=== PATIENT | female | born 1990 | race Caucasian/White ===

== ENCOUNTER 2019-09-26 15:58 | Inpatient (IN) | payer BC ==
[~2019-09-26] VITALS: Ht 170.2 cm; Wt 146.1 kg
[2019-09-26 16:15] VITALS: BP_SYST 175
--- NOTE | 2019-09-26 16:15 | NUR ---
ADMISSION NOTE Received patient DIRECT ADMIT FROM DR. FORMAN. Patient admitted with diagnosis of RECTAL BLEEDING. Patient oriented to hospital routine, call light, toileting and safety-patient verbalized understanding.
[2019-09-26] MEDS ORDERED: METO25TA3 PO (16:23)
[2019-09-26] MEDS ORDERED: GLUXR500 PO (16:23)
[2019-09-26] MEDS ORDERED: LISD60TA PO (16:23)
[2019-09-26] MEDS ORDERED: OLAN10TA3 PO (16:23)
[2019-09-26] MEDS ORDERED: BUPR300T55 PO (16:23)
--- NOTE | 2019-09-26 17:38 | NUR ---
CONSULT PAGED DR. GALINDO CONSULT SPECIALITY: GI DIALED: [phone] SPOKE TO: RADHA ORDERED BY: DR. FORMAN
--- NOTE | 2019-09-26 18:00 | NUR ---
Dr. Mcdonald called with order Received a call from Dr. Mcdonald with new order for colonoscopy in am at 7:15, household appliance assembler notified, golytely 4 L and may add more 2 L if not yet cleared, 15 mg dulcolax and NPo post midnight, telephone order read back, verified, noted and carried out.
--- NOTE | 2019-09-26 18:10 | NUR ---
Dr. Wilkerson rounds Seen and examined by , will follow-up for any new orders.
[2019-09-26] MEDS ORDERED: BISACODYL 5 MG TABLET.DR (DULCOLAX) PO ONE (18:15)
[2019-09-26 18:16] LABS: BASOPHILS # (AUTO) 0.1 K/uL (0.0-0.2); BASOPHILS % (AUTO) 0.8 % (0.0-2.0); EOSINOPHILS # (AUTO) 0.3 K/uL (0.0-0.4); EOSINOPHILS % (AUTO) 3.4 % (0.0-4.0); HEMATOCRIT 40.6 % (36-48); HEMOGLOBIN 14.4 g/dL (12.0-16.0); LYMPHOCYTES # (AUTO) 3.1 K/uL (1.0-5.5); LYMPHOCYTES % (AUTO) 37.4 % (20.5-51.5); MEAN CORPUSCULAR HEMOGLOBIN 31 pg (27-31); MEAN CORPUSCULAR HGB CONC 36 % (32-36); MEAN CORPUSCULAR VOLUME 87 fL (79.0-98.0); MONOCYTES # (AUTO) 0.5 K/uL (0.0-1.0); MONOCYTES % (AUTO) 6.2 % (1.7-9.3); NEUTROPHILS # (AUTO) 4.3 K/uL (1.8-7.7); NEUTROPHILS % (AUTO) 52.2 % (40.0-70.0); PLATELET COUNT (AUTO) 297 K/uL (130-430); RED BLOOD CELL COUNT(AUTO) 4.69 MIL/uL (4.2-6.2); RED CELL DISTRIBUTION WIDTH 13.2 % (9.0-15.0); WHITE BLOOD COUNT (AUTO) 8.3 K/uL (4.8-10.8)
[2019-09-26 18:16] LABS: BILIRUBIN,URINE NEGATIVE (NEGATIVE); BLOOD, URINE NEGATIVE (NEGATIVE); COLOR,URINE YELLOW (YELLOW); GLUCOSE,URINE NEGATIVE (NEGATIVE); KETONES,URINE TRACE (NEGATIVE); LEUKOCYTE ESTERASE ,URINE NEGATIVE (NEGATIVE); NITRITE, URINE NEGATIVE (NEGATIVE); PH,URINE 6.5 (5.0-8.0); PROTEIN URINE NEGATIVE (NEGATIVE); UROBILINOGEN,URINE 0.2 (0.2-1.0)
[2019-09-26 18:21] LABS: CALCIUM 9.1 mg/dL (8.4-11.0); CREATININE 1.03 mg/dL (0.55-1.30); POTASSIUM 3.7 mmol/L (3.5-5.1)
[2019-09-26 18:22] LABS: CLARITY/URINE HAZY (CLEAR)
[2019-09-26] MEDS: NACL 0.9% 1,000 ML IV SCH (18:23)
[2019-09-26] MEDS: buPROPion HCL 150 MG XL TAB PO ONE ×2 (18:23→18:29)
[2019-09-26] MEDS: OLANZapine 10 MG TABLET PO ONE ×2 (18:24→18:29)
[2019-09-26 18:25] LABS: PROTHROMBIN TIME 10.3 SECS (9.5-12.5)
[2019-09-26] MEDS: METOPROLOL SUCCINATE 25 MG TAB.SR.24H (TOPROL XL) PO ONE ×2 (18:25→18:29)
[2019-09-26 18:26] LABS: TOTAL BILIRUBIN 0.6 mg/dL (0.0-1.0)
--- NOTE | 2019-09-26 19:14 | NUR ---
Closing Notes Patient remain to be alert, awake and verbally responsive, respiration even and unlabored. Denies any pain or discomfort. IVF infusing well. Patient refused all PO meds due except Dulcolax, explained risks and benefits. Pre colonoscopy instructions given, patient verbalized understanding. Call light within the reach. Will endorse to the next shift.
[2019-09-26 20:00] VITALS: BP_SYST 136
[2019-09-26] MEDS ORDERED: GOLYTELY / COLYTE SOLUTION 4 LITERS PO ONE (20:00)
--- NOTE | 2019-09-26 20:00 | NUR ---
Pt is resting quietly in bed. No acute distress noted and no c/o pain or discomfort. IVF of NS is infusing well in LAC at 100ml/hr without any signs of infiltration. Pt was instructed on nothing by mouth after midnight for colonoscopy in AM and pt verbalized understanding. Fall and safety precautions are in place.
[2019-09-26] MEDS: FAMOTIDINE 20 MG TABLET PO SCH (20:21)
--- NOTE | 2019-09-26 22:00 | NUR ---
Pt is tolerating Golytely well when she drinks water and apple juice in between drinking Golytely. IVF is infusing well in LAC. Pt's mother is in a recliner at the bedside.
[2019-09-27] VITALS: BP_SYST 128
--- NOTE | 2019-09-27 | NUR ---
Pt is now nothing by mouth for colonoscopy. Pt had multiple bowel movements and bowel output is clear at this time. IVF is infusing well in LAC. Pt's mother is at the bedside in a recliner.
--- NOTE | 2019-09-27 02:00 | NUR ---
Pt is sleeping without any distress noted. Fall and safety precautions are in place. IVF is infusing well in [facility]. Pt's mother is also asleep in a recliner at the bedside.
[2019-09-27] MEDS ORDERED: MORPHINE 4 MG/ML INJ. SYRINGE IVP PRN (04:00)
[2019-09-27] MEDS: NACL 0.9% 1,000 ML IV SCH ×2 (04:10→13:45)
[2019-09-27] MEDS: ONDANSETRON HCL 4 MG/2 ML VIAL IVP PRN ×2 (04:19→12:54)
--- NOTE | 2019-09-27 04:20 | NUR ---
Pt c/o 8/10 rectal pain and nausea. No emesis noted. Pt requested medications for both. Morphine 4mg and Zofran 4mg were given IV as ordered by Dr. Wilkerson. IV site is without any signs of infiltration. Bed alarm was armed per pt's request to prevent fall and injury. Pt's mother is at the bedside in a recliner.
--- NOTE | 2019-09-27 06:30 | NUR ---
PT IS AWAKE AND RESTING COMFORTABLY IN BED. ALL PT'S NEEDS WERE ATTENDED TO. FALL AND SAFETY PRECAUTIONS ARE IN PLACE.
[2019-09-27] MEDS ORDERED: fentaNYL CITRATE/PF 100 MCG/2 ML AMP ONE (06:40)
[2019-09-27] MEDS ORDERED: MIDAZOLAM HCL 5 MG/5 ML VIAL ONE (06:44)
[2019-09-27] MEDS: MIDAZOLAM HCL 5 MG/5 ML VIAL ONE ×3 (07:02→07:14)
[2019-09-27] MEDS ORDERED: MEPERIDINE HCL/PF 100 MG/ML AMP ONE (07:10)
[2019-09-27 07:27] LABS: BASOPHILS # (AUTO) 0.1 K/uL (0.0-0.2); BASOPHILS % (AUTO) 0.8 % (0.0-2.0); EOSINOPHILS # (AUTO) 0.2 K/uL (0.0-0.4); EOSINOPHILS % (AUTO) 3.3 % (0.0-4.0); HEMATOCRIT 35.8 % (36-48); HEMOGLOBIN 12.5 g/dL (12.0-16.0); LYMPHOCYTES # (AUTO) 2.8 K/uL (1.0-5.5); MEAN CORPUSCULAR HEMOGLOBIN 31 pg (27-31); MEAN CORPUSCULAR HGB CONC 35 % (32-36); MEAN CORPUSCULAR VOLUME 87 fL (79.0-98.0); MONOCYTES # (AUTO) 0.6 K/uL (0.0-1.0); MONOCYTES % (AUTO) 8.4 % (1.7-9.3); NEUTROPHILS % (AUTO) 45.5 % (40.0-70.0); PLATELET COUNT (AUTO) 234 K/uL (130-430); RED BLOOD CELL COUNT(AUTO) 4.09 MIL/uL (4.2-6.2); RED CELL DISTRIBUTION WIDTH 13.2 % (9.0-15.0); WHITE BLOOD COUNT (AUTO) 6.6 K/uL (4.8-10.8)
[2019-09-27] MEDS ORDERED: HYDROCORTISONE 1%, 28.35 GM TOPICAL CREAM TP PRN (07:30)
[2019-09-27 07:42] LABS: CALCIUM 7.9 mg/dL (8.4-11.0); CREATININE 0.95 mg/dL (0.55-1.30); POTASSIUM 3.5 mmol/L (3.5-5.1)
--- NOTE | 2019-09-27 08:00 | NUR ---
Back from GI Lab Patient arrived from GI lab via wheelchair, accompanied by RN, alert, awake and verbally responsive. Denies any pain or discomfort. Respiration even and unlabored. Ambulated to the restroom, steady. No active bleeding. Discussed plan of care today and usage of call light, patient verbalized understanding, patient verbalized understanding. Call light within the reach. Will continue to monitor.
[2019-09-27 08:08] LABS: FREE T4 (FREE THYROXINE) 1.1 ng/dl (0.8-1.5); THYROID STIMULATING HORMONE 3.59 uIu/mL (0.36-3.74)
[2019-09-27 08:25] VITALS: BP_SYST 136
[2019-09-27] MEDS ORDERED: LISDEXAMFETAMINE DIMESYLATE 70 MG PO SCH (09:00)
[2019-09-27] MEDS ORDERED: METOPROLOL SUCCINATE 25 MG TAB.SR.24H (TOPROL XL) PO SCH (09:00)
[2019-09-27] MEDS ORDERED: buPROPion HCL 150 MG XL TAB PO SCH (09:00)
[2019-09-27] MEDS ORDERED: OLANZapine 10 MG TABLET PO SCH (09:00)
[2019-09-27] MEDS: FAMOTIDINE 20 MG TABLET PO SCH (09:25)
--- NOTE | 2019-09-27 10:30 | NUR ---
RN ROUNDS Patient resting well, respiration even and unlabored. Denies any pain or discomfort at this time. No active bleeding noted. Call light within the reach.
[2019-09-27 12:00] VITALS: BP_SYST 107
--- NOTE | 2019-09-27 12:30 | NUR ---
Headache and nausea Complained of headache /10 and nausea, refused morphine, paged Dr. Wilkerson, awaiting for call back. Zofran given as ordered for nausea. Will follow-up for effectiveness.
--- NOTE | 2019-09-27 13:00 | NUR ---
Sleeping Patient asleep, no complain of headache at this time, no moaning or grimacing noted. Call light within the reach.
--- NOTE | 2019-09-27 14:00 | NUR ---
Dr. Wilkerson Rounds Seen and examined by MD, notified regarding with episode of headache and nausea, per MD okay to give Tylenol and keep full liquid diet till dinner and okay to discharge after.
[2019-09-27] MEDS ORDERED: ACETAMINOPHEN 500 MG TABLET PO PRN (15:15)
[2019-09-27 16:00] VITALS: BP_SYST 116
--- NOTE | 2019-09-27 16:30 | NUR ---
RN ROUNDS Patient currently lying comfortably in her bed with respiration even and unlabored. Call light within the reach.
[2019-09-27] MEDS ORDERED: ONDA4TAB5 PO (18:01)
[2019-09-27 18:10] VITALS: BP_SYST 124
--- NOTE | 2019-09-27 18:49 | NUR ---
D/C Patient TO HOME Patient given medication reconciliation form and D/C instructions. Exit Care provided. Patient verbalized understanding. MD discussed with patient the results and treatment provided. Ambulatory with steady gait for discharge to home. Patient in stable condition, ID band removed. IV catheter removed, intact and dressing applied, no active bleeding. Called and notified Dr. Wilkerson regarding calling the pharmacy for the precription for Zofran per patient's request. Patient educated on pain management. All belongings sent with patient.
== END 2019-09-27 18:49 | disposition home or self-care (01) | DRG 394 ==
LOC: SMU 15:58
PROVIDERS: ADMIT Internal Medicine; ATTEND Internal Medicine
PROC: 0DBE8ZX Excision of Large Intestine, Via Natural or Artificial Opening Endoscopic, Diagnostic (ICD-10-PCS; 2019-09-27)
PROC: 0DBM8ZZ Excision of Descending Colon, Via Natural or Artificial Opening Endoscopic (ICD-10-PCS; principal; 2019-09-27 07:00)
DX: K63.5 Polyp of colon (principal); Z68.43 Body mass index [BMI] 50.0-59.9, adult; K64.4 Residual hemorrhoidal skin tags; F31.9 Bipolar disorder, unspecified; E66.01 Morbid (severe) obesity due to excess calories; K59.00 Constipation, unspecified; K58.0 Irritable bowel syndrome with diarrhea; Z88.1 Allergy status to other antibiotic agents; Z88.2 Allergy status to sulfonamides; Z79.899 Other long term (current) drug therapy
CPT/HCPCS: 36415; 45380; 80048; 80053; 80061; 81003; 83036; 83690-TC; 83735-TC; 84439; 84443-TC; 85025; 85610-TC; 85730-TC; 86886; 86900; 86901; 88305; J2175; J2250; J2270; J2405; J3010; J7030

== ENCOUNTER 2021-06-11 17:28 | Inpatient (IN) | payer BC, MEDICAID, SELFPAY ==
[~2021-06-11] VITALS: Ht 170.2 cm; Wt 139.3 kg
[~2021-06-11 17:28] MED LIST: BUPR300T55 PO; GLUXR500 PO; LISD60TA PO; METO25TA3 PO; OLAN10TA3 PO; ONDA4TAB5 PO
[2021-06-11 17:39] VITALS: BP_SYST 141
--- NOTE | 2021-06-11 17:40 | NUR ---
Patient to ER bed TENT1 to gown for evaluation. Side rails up.
--- NOTE | 2021-06-11 17:42 | NUR ---
Pt brought by mother, A&Ox4, pt presents to ER with cough / congestion, pt afebrile, skin pink and warm, respirations even and unlabored, will cont to monitor.
--- NOTE | 2021-06-11 19:00 | NUR ---
DR. CARRILLO AT BEDSIDE FOR EVALUATION.
[2021-06-11 19:50] LABS: BASOPHILS % (AUTO) 0.4 % (0.0-2.0); HEMATOCRIT 40.2 % (36-48); HEMOGLOBIN 13.8 g/dL (12.0-16.0); LYMPHOCYTES # (AUTO) 1.3 K/uL (1.0-5.5); LYMPHOCYTES % (AUTO) 19.2 % (20.5-51.5); MEAN CORPUSCULAR HEMOGLOBIN 30 pg (27-31); MEAN CORPUSCULAR HGB CONC 34 % (32-36); MEAN CORPUSCULAR VOLUME 86 fL (79.0-98.0); MONOCYTES # (AUTO) 0.5 K/uL (0.0-1.0); MONOCYTES % (AUTO) 7.7 % (1.7-9.3); NEUTROPHILS % (AUTO) 72.7 % (40.0-70.0); PLATELET COUNT (AUTO) 191 K/uL (130-430); RED BLOOD CELL COUNT(AUTO) 4.68 MIL/uL (4.2-6.2); RED CELL DISTRIBUTION WIDTH 13.9 % (9.0-15.0); WHITE BLOOD COUNT (AUTO) 6.9 K/uL (4.8-10.8)
[2021-06-11 19:55] LABS: CALCIUM 8.2 mg/dL (8.4-11.0); CREATININE 1.3 mg/dL (0.55-1.30)
[2021-06-11 20:00] LABS: ALBUMIN 3.7 g/dL (3.4-4.8); TOTAL BILIRUBIN 0.5 mg/dL (0.0-1.0)
[2021-06-11 20:08] LABS: INR 1.1 (0.8-1.2); PROTHROMBIN TIME 11.7 SECS (9.5-12.5)
--- NOTE | 2021-06-11 20:40 | NUR ---
Patient will be admitted to care of [facility]. Admitted to TELE unit. Will go to room 134B. Belongings list completed. Complete and up to date summary report printed. SBAR report to be given at bedside with opportunity for questions.
[2021-06-11 20:44] LABS: C-REACTIVE PROTEIN QUANT 4.9 mg/dL (0-0.5)
[2021-06-11 20:53] LABS: BILIRUBIN,URINE NEGATIVE (NEGATIVE); BLOOD, URINE NEGATIVE (NEGATIVE); COLOR,URINE YELLOW (YELLOW); GLUCOSE,URINE NEGATIVE (NEGATIVE); KETONES,URINE NEGATIVE (NEGATIVE); LEUKOCYTE ESTERASE ,URINE NEGATIVE (NEGATIVE); NITRITE, URINE NEGATIVE (NEGATIVE); PROTEIN URINE 1+ (NEGATIVE); UROBILINOGEN,URINE 0.2 (0.2-1.0)
[2021-06-11] MEDS ORDERED: INSULIN REGULAR, HUMAN 100 UNITS/ML, 10 ML VIAL (humuLIN R) SUBCUT PRN (21:00)
[2021-06-11] MEDS ORDERED: ONDANSETRON 4 MG ODT TAB PO SCH (21:00)
[2021-06-11] MEDS ORDERED: DEXTROSE 50% JECT 50 ML DISP.SYRIN IVP PRN (21:00)
[2021-06-11 21:03] LABS: CLARITY/URINE SLIGHTLY HAZY (CLEAR)
[2021-06-11 21:08] LABS: BACTERIA,URINE FEW /HPF (None Seen); RBC,URINE 0-3 /HPF (0-3); WBC,URINE 0-3 /HPF (0-3)
[2021-06-11 21:09] LABS: MUCUS,URINE 1+ /LPF (None Seen)
[2021-06-11] MEDS ORDERED: LOPERAMIDE HCL 2 MG CAPSULE PO PRN (21:15)
[2021-06-11] MEDS ORDERED: ONDANSETRON HCL 4 MG/2 ML VIAL IVP PRN (21:15)
--- NOTE | 2021-06-11 21:16 | NUR ---
Patient's code status is FULL CODE paperwork completed and placed in chart.
--- NOTE | 2021-06-11 21:26 | NUR ---
BELONGINGS DONE AT BEDSIDE WITH PATIENT.
[2021-06-11] MEDS ORDERED: TOPXL100 PO (21:33)
--- NOTE | 2021-06-11 21:34 | NUR ---
Medication reconciliation completed with information provided by PATIENT. Any prior medication reconciliation on file was reviewed and corrected.
--- NOTE | 2021-06-11 21:45 | NUR ---
ADMISSION NOTE Received patient from ER via gurney. Patient admitted with diagnosis of . Patient is awake, alert, oriented X 4. Patient oriented to hospital room, call light, toileting, pain management and safety-teach back done. Patient informed that CARIE will be HER nurse and that their room number is 134B. Personal belongings checked and Belongings List documented. Call light within reach.
--- NOTE | 2021-06-11 21:50 | NUR ---
PATIENT AWAKE ALERT ORIENTED X4 BREATHING OXYGEN VIA N/C AT 2 LPM NO SIGNS OF PAIN OR DISTRESS. IV SITE PATENT AND INTACT. BED LOW AND CALL LIGHT IN REACH.
[2021-06-11 22:00] VITALS: BP_SYST 128
[2021-06-11 22:10] VITALS: BP_SYST 159
--- NOTE | 2021-06-11 22:11 | NUR ---
CONSULT REASON FOR CONSULT: COVID PERSON I SPOKE WITH: LEEANN CONSULTING PHYSICIAN: DR. PA WELDER FITTER GAS PHONE NUMBER: [phone] ORDERING PHYSICIAN: DR. FORMAN
[2021-06-11] MEDS ORDERED: cefTRIAXone 1 GM VIAL ONE (22:49)
[2021-06-11 22:52] VITALS: BP_SYST 159
[2021-06-11] MEDS: ACETAMINOPHEN 325 MG TABLET PO PRN (23:03)
[2021-06-11] MEDS: DEXAMETHASONE SOD PHOSPHATE 10 MG/ML VIAL IVP SCH (23:04)
[2021-06-11] MEDS: MAGNESIUM OXIDE 400 MG TABLET PO SCH (23:04)
[2021-06-11] MEDS: APIXABAN 2.5 MG TABLET PO SCH (23:04)
[2021-06-11] MEDS: cefTRIAXone 1 GM in D5W 50 ML IV SCH (23:05)
--- NOTE | 2021-06-12 | NUR ---
PATIENT COOPERATE RESTING IN BED. BED IN LOW POSITION AND CALL LIGHT IN REACH.
[2021-06-12 01:28] VITALS: BP_SYST 139
--- NOTE | 2021-06-12 04:00 | NUR ---
PATIENT DEVENDRA TO REST ROOM ACCIDENTLY DISLODGED IV LINE SITE CLEAN NO DRAINAGE NEW IV WILL BE READMINISTERED. BED IS LOW AND CALL LIGHT IN REACH.
--- NOTE | 2021-06-12 04:00 | NUR ---
PATIENT AWAKE ALERT ORIENTED X4 BREATHING OXYGEN VIA N/C NO SIGNS OF RESPIRATORY DISTRESS OR PAIN HAS MILD SHORTNESS OF BREATH WITH AMBULATION. IV SITE PATENT INTACT. BED IN LOW POSITION AND CALL LIGHT IN REACH.
--- NOTE | 2021-06-12 06:48 | NUR ---
PATIENT IS ASLEEP COMFORTABLE BREATHING OXYGEN 2 LPM VIA N/C NO SIGNS OF RESPIRATORY DISTRESS IN MY SHIFT HAS SHORTNESS OF BREATH OFF OF OXYGEN. IV LINE PATENT INTACT. PATIENT AMBULATES TO RESTROOM. BED LOW AND CALL LIGHT IN REACH. WILL ENDORSE TO NEXT SHIFT NURSE TO MONITOR LABS.
[2021-06-12 07:09] LABS: BASOPHILS % (AUTO) 0.3 % (0.0-2.0); HEMATOCRIT 38.9 % (36-48); HEMOGLOBIN 13.4 g/dL (12.0-16.0); LYMPHOCYTES # (AUTO) 1.4 K/uL (1.0-5.5); LYMPHOCYTES % (AUTO) 27.6 % (20.5-51.5); MEAN CORPUSCULAR HEMOGLOBIN 29 pg (27-31); MEAN CORPUSCULAR HGB CONC 35 % (32-36); MEAN CORPUSCULAR VOLUME 85 fL (79.0-98.0); MONOCYTES # (AUTO) 0.5 K/uL (0.0-1.0); NEUTROPHILS # (AUTO) 3.1 K/uL (1.8-7.7); NEUTROPHILS % (AUTO) 62.1 % (40.0-70.0); PLATELET COUNT (AUTO) 173 K/uL (130-430); RED BLOOD CELL COUNT(AUTO) 4.57 MIL/uL (4.2-6.2)
[2021-06-12 08:00] VITALS: BP_SYST 157
[2021-06-12 08:00] LABS: ALBUMIN 3.4 g/dL (3.4-4.8); CALCIUM 8.6 mg/dL (8.4-11.0); CREATININE 1.11 mg/dL (0.55-1.30); POTASSIUM 3.9 mmol/L (3.5-5.1); TOTAL BILIRUBIN 0.4 mg/dL (0.0-1.0)
--- NOTE | 2021-06-12 08:00 | NUR ---
Initial Notes Patient sitting up in bed eating breakfast. Awake and alert x 4. Oxygen is off. Patient short of breath. Placed oxygen back on at 3 liters via N/C. O2 saturation 92%. Increased to 4 liters. Low grade fever 99.1. Will continue to monitor. Bed placed in lowest position and call light in reach. Encouraged to call as needed.
[2021-06-12] MEDS: ALBUTEROL MDI INHALATION 8 GM INH INH SCH ×4 (09:00→19:56)
[2021-06-12] MEDS ORDERED: LISDEXAMFETAMINE DIMESYLATE 70 MG PO SCH (09:00)
[2021-06-12] MEDS ORDERED: ASCORBIC ACID 500 MG TABLET PO SCH (09:00)
[2021-06-12] MEDS: AZITHROMYCIN 500 MG in NS 250 ML IV SCH (09:01)
[2021-06-12] MEDS: buPROPion HCL 150 MG XL TAB PO SCH (09:02)
[2021-06-12] MEDS: CHOLECALCIFEROL (VITAMIN D3) 5,000 UNIT TABLET PO SCH (09:03)
[2021-06-12] MEDS: METOPROLOL SUCCINATE 25 MG TAB.SR.24H (TOPROL XL) PO SCH (09:03)
[2021-06-12] MEDS: OLANZapine 10 MG TABLET PO SCH (09:03)
[2021-06-12] MEDS: MAGNESIUM OXIDE 400 MG TABLET PO SCH ×2 (09:03→21:44)
[2021-06-12] MEDS: APIXABAN 2.5 MG TABLET PO SCH ×2 (09:03→21:47)
--- NOTE | 2021-06-12 10:00 | NUR ---
Patient Teaching Instructed patient on use of incentive spirometer and on prone position. Instructed to keep oxygen in place. Patient verbalized understanding.
--- NOTE | 2021-06-12 12:00 | NUR ---
Notes Patient sitting up in bed with HOB at 30 degrees, no acute distress. Dry cough noted. Instructed patient to reposition self to prone position. Patient verbalized understanding and repositioned self. Call light in reach and bed in lowest position.
[2021-06-12 12:12] VITALS: BP_SYST 148
--- NOTE | 2021-06-12 14:43 | NUR ---
Notes Patient complaining of anterior chest pain every time she coughs and now present with just breathing. Paged Dr. Wilkerson.
[2021-06-12] MEDS: BENZONATATE 100 MG CAPSULE (TESSALON) PO SCH ×2 (15:13→21:44)
[2021-06-12] MEDS: ACETAMINOPHEN 325 MG TABLET PO PRN (15:15)
--- NOTE | 2021-06-12 16:02 | NUR ---
Notes Patient resting at this time, pain is controlled. Oxygen flowing at 4 liters. Encouraged to call as needed.
[2021-06-12 17:20] VITALS: BP_SYST 138
--- NOTE | 2021-06-12 19:06 | NUR ---
Closing Notes Patient sitting up in bed eating dinner. No complaints or signs of pain or distress. Call light in reach, encouraged to call. Bed left in lowest position.
--- NOTE | 2021-06-12 19:30 | NUR ---
PATIENT AWAKE ALERT ORIENTED X4 BREATHING OXYGEN VIA N/C AT 4 LPM NO SIGNS OF RESPIRATORY DISTRESS OR PAIN. IV SITE PATENT AND INTACT. BED IS LOW AND CALL LIGHT IS IN REACH.
[2021-06-12] MEDS: DEXAMETHASONE SOD PHOSPHATE 10 MG/ML VIAL IVP SCH (21:42)
[2021-06-12] MEDS: cefTRIAXone 1 GM in D5W 50 ML IV SCH (21:43)
--- NOTE | 2021-06-13 | NUR ---
PATIENT IS ASLEEP AD COMFORTABLE. BED IS LOW AND CALL LIGHT IN REACH.
[2021-06-13] MEDS: ACETAMINOPHEN 325 MG TABLET PO PRN (01:26)
[2021-06-13 02:17] VITALS: BP_SYST 127
--- NOTE | 2021-06-13 04:00 | NUR ---
PATIENT IS ASLEEP COMFORTABLE NO SIGNS OF DISTRESS. BED IS LOW AND CALL LIGHT IN REACH.
--- NOTE | 2021-06-13 06:39 | NUR ---
CLOSING NOTE PATIENT IS ASLEEP COMFORTABLE NO SIGNS OF PAIN OR DISTRESS AT THIS TIME. PATIENT IS BREATHING WITH OXYGEN 4 LPM VIA N/C NO SHORTNESS OF BREATH IN MY SHIFT. PATIENTS IV PATENT AND INTACT IN LH. BED IS LOW AND CALL LIGHT IN REACH. WILL ENDORSE TO NEXT NURSE PENDING LABS.
[2021-06-13 07:58] LABS: ALBUMIN 3.1 g/dL (3.4-4.8); CALCIUM 8.6 mg/dL (8.4-11.0); CREATININE 0.82 mg/dL (0.55-1.30); POTASSIUM 4.3 mmol/L (3.5-5.1); TOTAL BILIRUBIN 0.3 mg/dL (0.0-1.0)
[2021-06-13] MEDS: ALBUTEROL MDI INHALATION 8 GM INH INH SCH ×4 (07:59→19:01)
[2021-06-13 08:00] VITALS: BP_SYST 128
--- NOTE | 2021-06-13 08:00 | NUR ---
patient in bed, no s/s of distress, on 4L NASAL CANULA, O2 SAT > 95%, NO PAIN REPORTED, EDUCATED TO AMBULATE WITH HELP, IV IN R HAND INTACT PATENT, A/OX4, BED IN LOWEST LOCKED POSITION, ON COVID 19 ISOLATION, CALL LIGHT WITHIN REACH, BED ALARM ON, SAFETY MEASURES IN PLACE, WILL CONTINUE TO MONITOR.
[2021-06-13] MEDS: OLANZapine 10 MG TABLET PO SCH (08:33)
[2021-06-13] MEDS: BENZONATATE 100 MG CAPSULE (TESSALON) PO SCH ×3 (08:33→20:54)
[2021-06-13] MEDS: CHOLECALCIFEROL (VITAMIN D3) 5,000 UNIT TABLET PO SCH (08:33)
[2021-06-13] MEDS: buPROPion HCL 150 MG XL TAB PO SCH (08:33)
[2021-06-13] MEDS: MAGNESIUM OXIDE 400 MG TABLET PO SCH ×2 (08:34→20:54)
[2021-06-13] MEDS: APIXABAN 2.5 MG TABLET PO SCH ×2 (08:36→20:55)
[2021-06-13] MEDS: AZITHROMYCIN 500 MG in NS 250 ML IV SCH (08:37)
[2021-06-13] MEDS: METOPROLOL SUCCINATE 25 MG TAB.SR.24H (TOPROL XL) PO SCH (08:58)
--- NOTE | 2021-06-13 09:00 | NUR ---
notified pharmacy that vitamin is not populating in any pyxis, said would reorded med and it should populate, said to wait and it should work, call back if not
--- NOTE | 2021-06-13 11:00 | NUR ---
call back pharmacy because vitamin c is still not stocked. said will deliver a dose to the unit.
[2021-06-13 12:00] VITALS: BP_SYST 132
--- NOTE | 2021-06-13 12:00 | NUR ---
PATIENT IN BED, TOLERATING CARE, EDUCATED TO GET UP WITH HELP, PATIENT STARTED MENSES AND PROVIDED UNDERWEAR AND PADS, NO COMPLAINTS AT THIS TIME.
[2021-06-13] MEDS: ASCORBIC ACID 500 MG TABLET PO SCH (13:23)
[2021-06-13 16:00] VITALS: BP_SYST 132
--- NOTE | 2021-06-13 16:05 | NUR ---
PATIENT IN BED PRONING, REINFORCED EDUCATION ON PRONING AND INCENTIVE SPIROMETER USE. UNDERSTOOD, WOULD BENEFIT FROM REINFORCEMENT
--- NOTE | 2021-06-13 17:00 | NUR ---
IV IN LEFT HAND BEGAN TO REDNESS AND PATIENT REPORTED 2/10 PAIN. REMOVED IV AND PLACED NEW ONE IN R HAND 22 G, INTACT PATENT, FLUSHING WELL.
--- NOTE | 2021-06-13 18:02 | NUR ---
Dietitian Recommendations * Recommend continuing regular diet LP, RD Please refer to Nutrition Assessment for details. Addendum: 06/14/21 at [address] Amended: Links added.
--- NOTE | 2021-06-13 18:20 | NUR ---
REMDESEVIR GIVEN IN NEW R HAND 22G IV. PATENT, DRESSING INTACT, INFUSION RUNNING.
--- NOTE | 2021-06-13 19:30 | NUR ---
OPENING OTE PATIENT IS ALERT ORIENTED X4 BREATHING OXYGEN VIA N/C WITH HUMIDIFIER AT 5 LPM NO SIGNS OF RESPIRATORY DISTRESS. PATIENT APPEARS COMFORTABLE AND FREE OF PAIN. IV SITE PATENT AND INTACT SL. BED IS LOW AND CALL LIGHT WITHIN REACH PATIENT AMBULATES INDEPENDENTLY TO RESTROOM ENCOURAGED TO USE CALL LIGHT FOR SUPPORT. Addendum: 06/14/21 at [address] RN OPENING NOTE PATIENT IS ALERT ORIENTED X4 BREATHING OXYGEN VIA N/C WITH HUMIDIFIER AT 5 LPM NO SIGNS OF RESPIRATORY DISTRESS. PATIENT APPEARS COMFORTABLE AND FREE OF PAIN. IV SITE PATENT AND INTACT SL. BED IS LOW AND CALL LIGHT WITHIN REACH PATIENT AMBULATES INDEPENDENTLY TO RESTROOM ENCOURAGED TO USE CALL LIGHT FOR SUPPORT. Addendum: 06/14/21 at [address] RN OPENING NOTE PATIENT IS ALERT ORIENTED X4 BREATHING OXYGEN VIA N/C WITH HUMIDIFIER AT 5 LPM NO SIGNS OF RESPIRATORY DISTRESS. PATIENT APPEARS COMFORTABLE AND FREE OF PAIN. IV SITE PATENT AND INTACT SL. BED IS LOW AND CALL LIGHT WITHIN REACH PATIENT AMBULATES INDEPENDENTLY TO RESTROOM ENCOURAGED TO USE CALL LIGHT FOR SUPPORT.
--- NOTE | 2021-06-13 19:30 | NUR ---
OPENING NOTE PATIENT IS ALERT AWAKE ORIENTED X4 NO SIGNS OF PAIN OR DISTRESS. BREATHING OXYGEN WITH HUMIDIFIER WITH N/C AT 5 LPM. IV SITE PATIENT AND INTACT. BED IS LOW AND CALL LIGHT IN REACH.
[2021-06-13] MEDS: cefTRIAXone 1 GM in D5W 50 ML IV SCH (20:53)
[2021-06-13] MEDS: DEXAMETHASONE SOD PHOSPHATE 10 MG/ML VIAL IVP SCH (20:54)
--- NOTE | 2021-06-14 00:10 | NUR ---
PATIENT COMPLAINING OF A IRRITATING COUGH UNABLE TO REST CALLED DR. FORMAN RECEIVED ORDER FOR NEGRA AWAITING PHARMACY TO APPROVE ORDER TO ADMINISTER.
--- NOTE | 2021-06-14 00:13 | NUR ---
MD CALLED : DR FORMAN CALLED BACK AND RECEIVED ORDER TESSALON 200 MG PO TID AND ROBITUSSIN DM 10 ML Q4HRS PRN FOR COUGH , NOTICED THAT PT ALREADY IS ON TESSALON , SO ROBITUSSIN ORDER ENTERED PER MD ORDERED .NOTIFIED PRIMARY RN .
[2021-06-14] MEDS ORDERED: guaiFENesin/DEXTROMETHORPHAN 10 ML UDC PO PRN (00:15)
[2021-06-14 01:36] VITALS: BP_SYST 137
--- NOTE | 2021-06-14 04:00 | NUR ---
PATIENT IS COMFORTABLE ASLEEP NO SIGNS OF PAIN OR DISTRESS. BED IS LOW AND CALL LIGHT IN REACH.
--- NOTE | 2021-06-14 06:13 | NUR ---
CLOSING NOTE PATIENT IS COMFORTABLE ASLEEP BREATHING OXYGEN VIA N/C AT 5 LPM WITH HUMIDIFIER NO SIGNS OF RESPIRATORY DISTRESS OR PAIN. PERIPHERAL IV LINE PATENT AND INTACT ON RIGHT HAND. BED IS IN LOW POSITION AND CALL LIGHT IN REACH. PATIENT HAD NEW ORDER OF ROBITUSSIN FOR COUGH LAUGH NIGHT ADMINISTERED AND EFFECTIVE NO COUGH AT THIS TIME. PATIENT HAS INCREASED APPETITE TODAY COMPARED TO PREVIOUS DAYS R/T COVID-19.
--- NOTE | 2021-06-14 07:51 | NUR ---
PATIENT IN BED, NO S/S OF DISTRESS, TOLERATING CARE, ON 5 L NASAL CANULA HUMIDIFIED, IV R HAND 22G INTACT PATENT, BED IN LOWEST LOCKED POSITION, CALL LIGHT WITHIN REACH, SAFETY MEASURES IN PLACE, WILL CONTINUE TO MONITOR.
[2021-06-14] MEDS: ALBUTEROL MDI INHALATION 8 GM INH INH SCH ×4 (07:54→20:07)
[2021-06-14 08:00] VITALS: BP_SYST 122
[2021-06-14] MEDS: BENZONATATE 100 MG CAPSULE (TESSALON) PO SCH ×3 (10:07→21:41)
[2021-06-14] MEDS: buPROPion HCL 150 MG XL TAB PO SCH (10:07)
[2021-06-14] MEDS: MAGNESIUM OXIDE 400 MG TABLET PO SCH ×2 (10:07→21:41)
[2021-06-14] MEDS: CHOLECALCIFEROL (VITAMIN D3) 5,000 UNIT TABLET PO SCH (10:08)
[2021-06-14] MEDS: ASCORBIC ACID 500 MG TABLET PO SCH (10:08)
[2021-06-14] MEDS: OLANZapine 10 MG TABLET PO SCH (10:08)
[2021-06-14] MEDS: APIXABAN 2.5 MG TABLET PO SCH ×2 (10:11→21:42)
[2021-06-14] MEDS: AZITHROMYCIN 500 MG in NS 250 ML IV SCH (10:12)
[2021-06-14 10:19] LABS: CALCIUM 8.5 mg/dL (8.4-11.0); CREATININE 0.81 mg/dL (0.55-1.30); POTASSIUM 3.7 mmol/L (3.5-5.1); TOTAL BILIRUBIN 0.3 mg/dL (0.0-1.0)
[2021-06-14] MEDS: METOPROLOL SUCCINATE 25 MG TAB.SR.24H (TOPROL XL) PO SCH (10:22)
[2021-06-14 12:20] VITALS: BP_SYST 108
[2021-06-14 16:20] VITALS: BP_SYST 114
--- NOTE | 2021-06-14 19:35 | NUR ---
Opening note Received SBAR report from [facility].
--- NOTE | 2021-06-14 19:45 | NUR ---
Pulled out IV Patient ambulated to restroom, she reports Telebox fell over, got caught on IV tubing and it pulled out. She is sitting on bed, anxious. Bleeding stopped, IV tip visualized intact. She was connect to IA and is calming down. She got new gown and I cleaned restroom
[2021-06-14 20:00] VITALS: BP_SYST 121
--- NOTE | 2021-06-14 21:45 | NUR ---
Meds Scheduled PO meds given
--- NOTE | 2021-06-14 23:10 | NUR ---
IV start New IV was started; #22 janett angiocath to RFA, tolerated.
[2021-06-14] MEDS: DEXAMETHASONE SOD PHOSPHATE 10 MG/ML VIAL IVP SCH (23:18)
[2021-06-14] MEDS: cefTRIAXone 1 GM in D5W 50 ML IV SCH (23:19)
[2021-06-15] VITALS: BP_SYST 110
--- NOTE | 2021-06-15 02:24 | NUR ---
Awake, OOB Patient is awake, leads are off, she wants to use rest room. She was assisted to BSC and returned to bed by self. No further needs, she wants to sleep again.
[2021-06-15] MEDS: ALBUTEROL MDI INHALATION 8 GM INH INH SCH ×4 (07:00→20:15)
[2021-06-15 07:23] LABS: ALBUMIN 2.9 g/dL (3.4-4.8); CALCIUM 8.7 mg/dL (8.4-11.0); CREATININE 0.87 mg/dL (0.55-1.30); POTASSIUM 4.3 mmol/L (3.5-5.1); TOTAL BILIRUBIN 0.4 mg/dL (0.0-1.0)
[2021-06-15 08:00] VITALS: BP_SYST 140
--- NOTE | 2021-06-15 08:00 | NUR ---
pt awake,alert,resting well in bed,on O2 4L/NC,sat 94%,needs attended,call light & personal items within pt reach safety maintained.
--- NOTE | 2021-06-15 10:00 | NUR ---
give am meds due,pt is compliant and tolerated well for meds.
[2021-06-15] MEDS: AZITHROMYCIN 500 MG in NS 250 ML IV SCH (10:40)
[2021-06-15] MEDS: OLANZapine 10 MG TABLET PO SCH (10:41)
[2021-06-15] MEDS: buPROPion HCL 150 MG XL TAB PO SCH (10:41)
[2021-06-15] MEDS: BENZONATATE 100 MG CAPSULE (TESSALON) PO SCH ×3 (10:41→20:28)
[2021-06-15] MEDS: MAGNESIUM OXIDE 400 MG TABLET PO SCH ×2 (10:42→20:29)
[2021-06-15] MEDS: CHOLECALCIFEROL (VITAMIN D3) 5,000 UNIT TABLET PO SCH (10:42)
[2021-06-15] MEDS: METOPROLOL SUCCINATE 25 MG TAB.SR.24H (TOPROL XL) PO SCH (10:42)
[2021-06-15] MEDS: ASCORBIC ACID 500 MG TABLET PO SCH (10:43)
[2021-06-15] MEDS: APIXABAN 2.5 MG TABLET PO SCH ×2 (10:53→20:30)
[2021-06-15 12:00] VITALS: BP_SYST 127
--- NOTE | 2021-06-15 12:00 | NUR ---
came and seen pt.decreased O2 to 3L/NC per dr nguyen,sat 92%.
--- NOTE | 2021-06-15 14:00 | NUR ---
pt urinated well in bedside commode and has 1 brown formed stool.
[2021-06-15 16:00] VITALS: BP_SYST 118
--- NOTE | 2021-06-15 16:00 | NUR ---
vss,family dropped bag of belongings and given to pt.
--- NOTE | 2021-06-15 18:00 | NUR ---
pt eating well for dinner,no n/v.give IV antibiotic due,no adverse reactions noted.
--- NOTE | 2021-06-15 19:30 | NUR ---
Opening note Received patient awake, sitting in bed w/ legs dangle. She is using cell phone. No distress, nonlabored breathing on 3L NC w/humidifier. Bed is locked in lowest position, side rails up 2x and call light w/in reach. She requested ice water; will provide.
[2021-06-15 20:00] VITALS: BP_SYST 132
[2021-06-15] MEDS: cefTRIAXone 1 GM in D5W 50 ML IV SCH (20:28)
[2021-06-15] MEDS: DEXAMETHASONE SOD PHOSPHATE 10 MG/ML VIAL IVP SCH (20:29)
--- NOTE | 2021-06-15 20:30 | NUR ---
Meds Patient given scheduled medications. Administered Rocephin IVPB and infusing well, no infiltration noted, reviewed side effects and she verbalized understanding.
--- NOTE | 2021-06-15 20:45 | NUR ---
patient care Patient was provided with new bed linen. She did not want to change gown, stating she had already changed earlier. Returned to bed resting in comfortable position. Call light w/in reach.
[2021-06-16 00:30] VITALS: BP_SYST 120
--- NOTE | 2021-06-16 00:30 | NUR ---
V/S Patient sleeping, momentarily awakened for v/s which are stable. She denies pain, no distress. Safety and isolation precautions in place.
--- NOTE | 2021-06-16 03:05 | NUR ---
resting Patient sleeping, she was momentarily awakened to assess lead placement. She has no further needs. Call light w/in reach.
[2021-06-16 06:42] LABS: BASOPHILS % (AUTO) 0.1 % (0.0-2.0); HEMATOCRIT 37.4 % (36-48); HEMOGLOBIN 12.8 g/dL (12.0-16.0); LYMPHOCYTES # (AUTO) 0.9 K/uL (1.0-5.5); LYMPHOCYTES % (AUTO) 18.5 % (20.5-51.5); MEAN CORPUSCULAR HEMOGLOBIN 29 pg (27-31); MEAN CORPUSCULAR HGB CONC 34 % (32-36); MEAN CORPUSCULAR VOLUME 85 fL (79.0-98.0); MONOCYTES # (AUTO) 0.4 K/uL (0.0-1.0); MONOCYTES % (AUTO) 7.8 % (1.7-9.3); NEUTROPHILS # (AUTO) 3.6 K/uL (1.8-7.7); NEUTROPHILS % (AUTO) 73.6 % (40.0-70.0); PLATELET COUNT (AUTO) 229 K/uL (130-430); RED CELL DISTRIBUTION WIDTH 13.7 % (9.0-15.0)
[2021-06-16] MEDS: BUDESONIDE 0.5 MG/2 ML AMPUL.NEB INH SCH ×2 (07:00→18:23)
--- NOTE | 2021-06-16 07:10 | NUR ---
NURSE REPORT REPORT OBTAINED FROM TRAV AND THIS NURSE ASSUMED CARE. VSS. AFEB. NO C/O PAIN OR DISCOMFORT/ o2 SAT LOW. PATIENT INSTRUCTED TO USE INCENTIVE SPIROMETER.
[2021-06-16 07:13] LABS: ALBUMIN 3.1 g/dL (3.4-4.8); CALCIUM 8.8 mg/dL (8.4-11.0); CREATININE 0.81 mg/dL (0.55-1.30); POTASSIUM 4.4 mmol/L (3.5-5.1); TOTAL BILIRUBIN 0.3 mg/dL (0.0-1.0)
[2021-06-16] MEDS: BENZONATATE 100 MG CAPSULE (TESSALON) PO SCH ×2 (09:00→16:18)
--- NOTE | 2021-06-16 09:00 | NUR ---
NURSE CARE PATIENT ASKED WHEN SHE WILL GO HOME. EXPLAINED NO MD ORDER AND MD NEEDS TO SEE HER BEFORE GOING HOME. ON IVPB ZITHROMAS AND REMDESIMIR. NO DISCHARGE ORDER OF THIS TIME.
[2021-06-16] MEDS: ALBUTEROL MDI INHALATION 8 GM INH INH SCH ×3 (09:08→16:19)
[2021-06-16] MEDS: CHOLECALCIFEROL (VITAMIN D3) 5,000 UNIT TABLET PO SCH (09:10)
[2021-06-16] MEDS: ASCORBIC ACID 500 MG TABLET PO SCH (09:23)
[2021-06-16] MEDS: buPROPion HCL 150 MG XL TAB PO SCH (09:23)
[2021-06-16] MEDS: MAGNESIUM OXIDE 400 MG TABLET PO SCH (09:24)
[2021-06-16] MEDS: METOPROLOL SUCCINATE 25 MG TAB.SR.24H (TOPROL XL) PO SCH (09:32)
[2021-06-16] MEDS: APIXABAN 2.5 MG TABLET PO SCH (09:35)
[2021-06-16] MEDS: AZITHROMYCIN 500 MG in NS 250 ML IV SCH (09:37)
[2021-06-16] MEDS: OLANZapine 10 MG TABLET PO SCH (09:42)
[2021-06-16 10:30] VITALS: BP_SYST 130
[2021-06-16 12:00] VITALS: BP_SYST 129; BP_SYST 130
--- NOTE | 2021-06-16 12:00 | NUR ---
NURSE CARE VSS. AFEB. O2 SAT 90%, ON RA. BUT LYING IN BED. ENCOURAGED TO TAKE DEEP BREATHE AND COUGH.
[2021-06-16] MEDS ORDERED: ASC500 PO (15:31)
[2021-06-16] MEDS ORDERED: CHOL500013 PO (15:31)
[2021-06-16] MEDS ORDERED: APIX2.5T PO (15:31)
[2021-06-16] MEDS ORDERED: ALBMDI INH (15:31)
[2021-06-16] MEDS ORDERED: Zinc Sulfate PO (15:31)
[2021-06-16] MEDS ORDERED: DEC4 PO (15:33)
[2021-06-16 16:00] VITALS: BP_SYST 138
[2021-06-16 17:49] VITALS: BP_SYST 122
[2021-06-16] MEDS: cefTRIAXone 1 GM in D5W 50 ML IV SCH (17:58)
--- NOTE | 2021-06-16 18:50 | NUR ---
NURSE CARE RECEIVED IVPB AZITHROMYCIN AND IVPB REMDESIMIR. VSS. AFEB. D/C INSTRUCTIONS GIVEN TO PATIENT AN VERBALIZED UNDERSTANDINGS. SL REMOVED WITH CATHETER INTACT
== END 2021-06-16 18:50 | disposition home or self-care (01) | DRG 177 ==
LOC: SED 17:28 → STU 20:39
PROVIDERS: ADMIT Internal Medicine; ATTEND Internal Medicine
PROC: XW033E5 Introduction of Remdesivir Anti-infective into Peripheral Vein, Percutaneous Approach, New Technology Group 5 (ICD-10-PCS; principal; 2021-06-13)
DX: U07.1 COVID-19 (principal); J12.82 Pneumonia due to coronavirus disease 2019; J96.01 Acute respiratory failure with hypoxia; E44.1 Mild protein-calorie malnutrition; E87.1 Hypo-osmolality and hyponatremia; Z68.42 Body mass index [BMI] 45.0-49.9, adult; E66.01 Morbid (severe) obesity due to excess calories; F31.9 Bipolar disorder, unspecified; F41.9 Anxiety disorder, unspecified; E11.9 Type 2 diabetes mellitus without complications; J45.909 Unspecified asthma, uncomplicated; I10 Essential (primary) hypertension; D72.810 Lymphocytopenia; E28.2 Polycystic ovarian syndrome; Z88.2 Allergy status to sulfonamides; Z79.899 Other long term (current) drug therapy
CPT/HCPCS: 36415; 36600; 71045; 80053; 81000; 82550; 82553; 82728; 82803-TC; 82962; 83036; 83605; 83615; 83880; 84484; 85025; 85379; 85384; 85610-TC; 85730-TC; 86140; 86886; 86900; 86901; 87040-TC; 87086; 94010; 94640; 94760; 99285; G0378; J0456; J0696; J1100; J1815; J2405; J7050; J7060

== ENCOUNTER 2023-02-25 05:53 | Inpatient (IN) | payer BC, OTHER ==
[~2023-02-25] VITALS: Ht 167.6 cm; Wt 133.8 kg
[~2023-02-25 05:53] MED LIST changes: +ALBMDI INH; +APIX2.5T PO; +ASC500 PO; +CHOL500013 PO; +DEC4 PO; -LISD60TA PO; -METO25TA3 PO; +TOPXL100 PO; +Zinc Sulfate PO
[2023-02-25 06:00] VITALS: BP_SYST 137; BP_SYST 79
[2023-02-25] MEDS ORDERED: KETOROLAC TROMETHAMINE 30 MG VIAL IVP ONE (06:15)
[2023-02-25] MEDS ORDERED: ONDANSETRON HCL 4 MG/2 ML VIAL IVP ONE ×2 (06:15→10:45)
[2023-02-25] MEDS ORDERED: MORPHINE 2 MG/ML INJ. SYRINGE IVP ONE ×3 (06:15→10:45)
[2023-02-25] MEDS ORDERED: NACL 0.9% 1,000 ML IV ONE (06:15)
[2023-02-25 06:40] LABS: BASOPHILS # (AUTO) 0.1 K/uL (0.0-0.2); BASOPHILS % (AUTO) 0.8 % (0.0-2.0); EOSINOPHILS # (AUTO) 0.2 K/uL (0.0-0.4); EOSINOPHILS % (AUTO) 1.8 % (0.0-4.0); HEMATOCRIT 41.3 % (36-48); LYMPHOCYTES # (AUTO) 3.1 K/uL (1.0-5.5); LYMPHOCYTES % (AUTO) 32.9 % (20.5-51.5); MEAN CORPUSCULAR HEMOGLOBIN 29 pg (27-31); MEAN CORPUSCULAR HGB CONC 34 % (32-36); MEAN CORPUSCULAR VOLUME 85 fL (79.0-98.0); MONOCYTES # (AUTO) 0.4 K/uL (0.0-1.0); MONOCYTES % (AUTO) 4.8 % (1.7-9.3); NEUTROPHILS # (AUTO) 5.6 K/uL (1.8-7.7); NEUTROPHILS % (AUTO) 59.7 % (40.0-70.0); PLATELET COUNT (AUTO) 271 K/uL (130-430); RED BLOOD CELL COUNT(AUTO) 4.85 MIL/uL (4.2-6.2); WHITE BLOOD COUNT (AUTO) 9.3 K/uL (4.8-10.8)
[2023-02-25 07:09] LABS: CALCIUM 8.5 mg/dL (8.4-11.0); CREATININE 0.84 mg/dL (0.55-1.30)
[2023-02-25 07:13] LABS: ALBUMIN 3.6 g/dL (3.4-4.8); TOTAL BILIRUBIN 0.6 mg/dL (0.0-1.0)
[2023-02-25] MEDS ORDERED: MORPHINE 4 MG INJ. 4 MG/ML VIAL IVP ONE (07:15)
[2023-02-25 07:31] LABS: BILIRUBIN,URINE NEGATIVE (NEGATIVE); BLOOD, URINE 3+ (NEGATIVE); CLARITY/URINE CLEAR (CLEAR); COLOR,URINE YELLOW (YELLOW); GLUCOSE,URINE NEGATIVE (NEGATIVE); KETONES,URINE NEGATIVE (NEGATIVE); LEUKOCYTE ESTERASE ,URINE NEGATIVE (NEGATIVE); NITRITE, URINE NEGATIVE (NEGATIVE); PROTEIN URINE TRACE (NEGATIVE); UROBILINOGEN,URINE 0.2 (0.2-1.0)
[2023-02-25 07:57] LABS: BACTERIA,URINE FEW /HPF (None Seen); MUCUS,URINE 1+ /LPF (None Seen); WBC,URINE 0-3 /HPF (0-3)
[2023-02-25 12:00] VITALS: BP_SYST 129
[2023-02-25] MEDS ORDERED: NALOXONE HCL 0.4 MG/ML AMP (NARCAN) IVP PRN ×3 (12:00→17:30)
[2023-02-25] MEDS ORDERED: ACETAMINOPHEN 325 MG TABLET PO PRN (12:00)
[2023-02-25] MEDS ORDERED: MORPHINE 4 MG INJ. 4 MG/ML VIAL IVP PRN (12:00)
[2023-02-25] MEDS ORDERED: ONDANSETRON HCL 4 MG/2 ML VIAL IVP PRN ×2 (12:00→17:30)
[2023-02-25] MEDS ORDERED: PANTOPRAZOLE SODIUM 40 MG/VIAL (PROTONIX) IVP ONE (12:00)
[2023-02-25] MEDS ORDERED: MORPHINE 2 MG/ML INJ. SYRINGE IVP PRN (12:00)
[2023-02-25 12:20] VITALS: BP_SYST 129
[2023-02-25] MEDS: D5LR 1,000 ML IV SCH ×3 (12:45→21:41)
[2023-02-25] MEDS ORDERED: HYDROmorphone 1 MG/ML INJ. CARTRIDGE IVP PRN (13:45)
[2023-02-25] MEDS ORDERED: OLANZapine 10 MG TABLET PO ONE (14:15)
[2023-02-25 16:00] VITALS: BP_SYST 128
[2023-02-25] MEDS ORDERED: HYDROcodone/ACETAMIN 5-325 MG TAB (NORCO/ VICODIN) PO PRN (17:30)
[2023-02-25] MEDS ORDERED: HYDROmorphone 2 MG/ML VIAL IVP PRN (17:30)
[2023-02-25] MEDS ORDERED: OXYCODONE/ACETAMINOPHEN 5-325 TABLET PO PRN ×2 (17:30)
[2023-02-25 20:00] VITALS: BP_SYST 115
[2023-02-25] MEDS: SIMETHICONE 80 MG TAB.CHEW PO SCH (21:33)
[2023-02-25] MEDS: PANTOPRAZOLE SODIUM 40 MG/VIAL (PROTONIX) IVP SCH (21:36)
[2023-02-26 01:39] VITALS: BP_SYST 107
[2023-02-26 07:42] LABS: BASOPHILS # (AUTO) 0.1 K/uL (0.0-0.2); BASOPHILS % (AUTO) 0.4 % (0.0-2.0); EOSINOPHILS % (AUTO) 0.4 % (0.0-4.0); HEMATOCRIT 38.2 % (36-48); HEMOGLOBIN 12.7 g/dL (12.0-16.0); LYMPHOCYTES # (AUTO) 2.6 K/uL (1.0-5.5); LYMPHOCYTES % (AUTO) 21.8 % (20.5-51.5); MEAN CORPUSCULAR HEMOGLOBIN 29 pg (27-31); MEAN CORPUSCULAR HGB CONC 33 % (32-36); MEAN CORPUSCULAR VOLUME 86 fL (79.0-98.0); MONOCYTES # (AUTO) 0.7 K/uL (0.0-1.0); MONOCYTES % (AUTO) 5.8 % (1.7-9.3); NEUTROPHILS # (AUTO) 8.5 K/uL (1.8-7.7); NEUTROPHILS % (AUTO) 71.6 % (40.0-70.0); PLATELET COUNT (AUTO) 269 K/uL (130-430); RED BLOOD CELL COUNT(AUTO) 4.47 MIL/uL (4.2-6.2); RED CELL DISTRIBUTION WIDTH 14.1 % (9.0-15.0); WHITE BLOOD COUNT (AUTO) 11.9 K/uL (4.8-10.8)
[2023-02-26 07:54] VITALS: BP_SYST 121
[2023-02-26 07:59] LABS: CALCIUM 8.3 mg/dL (8.4-11.0); CREATININE 0.79 mg/dL (0.55-1.30)
[2023-02-26] MEDS: D5LR 1,000 ML IV SCH (08:00)
[2023-02-26] MEDS ORDERED: OLANZapine 10 MG TABLET PO SCH (09:00)
[2023-02-26] MEDS ORDERED: METOPROLOL SUCCINATE 50 MG TAB.SR.24H (TOPROL XL) PO SCH (09:00)
[2023-02-26] MEDS ORDERED: buPROPion HCL 150 MG XL TAB PO SCH (09:00)
[2023-02-26] MEDS ORDERED: CHOLECALCIFEROL (VITAMIN D3) 5,000 UNIT TABLET PO SCH (09:00)
[2023-02-26] MEDS: PANTOPRAZOLE SODIUM 40 MG/VIAL (PROTONIX) IVP SCH (09:15)
[2023-02-26] MEDS: SIMETHICONE 80 MG TAB.CHEW PO SCH ×2 (09:15→14:19)
[2023-02-26 11:00] VITALS: BP_SYST 117
[2023-02-26 15:49] VITALS: BP_SYST 114
[2023-02-26 16:19] VITALS: BP_SYST 114
== END 2023-02-26 18:30 | disposition home or self-care (01) | DRG 742 ==
LOC: SED 05:53 → SMU 10:48
PROVIDERS: ADMIT Internal Medicine; ATTEND Internal Medicine
PROC: 0UB54ZZ Excision of Right Fallopian Tube, Percutaneous Endoscopic Approach (ICD-10-PCS; 2023-02-25)
PROC: 0UB04ZZ Excision of Right Ovary, Percutaneous Endoscopic Approach (ICD-10-PCS; principal; 2023-02-25 15:33)
DX: N83.521 Torsion of right fallopian tube (principal); Z68.42 Body mass index [BMI] 45.0-49.9, adult; N83.201 Unspecified ovarian cyst, right side; N83.202 Unspecified ovarian cyst, left side; F41.9 Anxiety disorder, unspecified; F32.A Depression, unspecified; E66.01 Morbid (severe) obesity due to excess calories; N92.6 Irregular menstruation, unspecified; N73.6 Female pelvic peritoneal adhesions (postinfective); Z80.41 Family history of malignant neoplasm of ovary; Z88.2 Allergy status to sulfonamides; Z88.8 Allergy status to other drugs, medicaments and biological substances; Z79.899 Other long term (current) drug therapy; Z98.84 Bariatric surgery status
CPT/HCPCS: 36415; 76376; 76856-TC; 80048; 80053; 81000; 83690; 84703; 85025; 87081; 88108; 88305; 96361; 96374; 96375; 99285; C9113; J1170; J1885; J2270; J2405; J7120